=== PATIENT | male | born 1955 | race Caucasian/White ===

== ENCOUNTER 2021-10-19 09:36 | Emergency (ER) | payer OTHER ==
[~2021-10-19] VITALS: Ht 180.3 cm; Wt 70.3 kg
[2021-10-19] MEDS ORDERED: PANTOPRAZOLE SO40 MG PO (09:56)
[2021-10-19] MEDS ORDERED: LISINOPRIL20 MG PO (09:56)
[2021-10-19] MEDS ORDERED: ASPIRIN EC325 MG PO (09:56)
[2021-10-19] MEDS ORDERED: CLOPIDOGREL75 MG PO (09:56)
[2021-10-19] MEDS ORDERED: CYCLOBENZAPRINE5 MG PO (09:57)
[2021-10-19] MEDS ORDERED: COMBIVENT RESPIM4 GM INH (09:57)
[2021-10-19] MEDS ORDERED: TAMSULOSIN HCL0.4 MG PO (09:57)
[2021-10-19] MEDS ORDERED: ADVAIR HFA 230-12 GM (09:57)
[2021-10-19] MEDS ORDERED: ONDANSETRON ODT8 MG PO (11:30)
[2021-10-19] MEDS ORDERED: HYDROCODON-ACE1 EA11 PO (12:49)
== END 2021-10-19 13:06 | disposition home or self-care (01) ==
LOC: ED 09:36
DX: K85.90 Acute pancreatitis without necrosis or infection, unspecified (principal); Z88.0 Allergy status to penicillin; Z79.899 Other long term (current) drug therapy; Z79.82 Long term (current) use of aspirin
CPT/HCPCS: 36415; 74177; 80053; 81001; 83690; 85025; 96361; 96375; 99284-25; A9270; J2060; J2405; J7030; Q9967